=== PATIENT | male | born 1985 | race Caucasian/White ===

== ENCOUNTER → 2025-01-02 | Outpatient (CLI) | payer BC, SELFPAY ==
[2025-01-03 18:05] LABS: ALB/GLOB Ratio 1.6 RATIO (0.9-2.4); AST(SGOT) 23 U/L (<=37); Alanine Aminotransfer ALT/SGPT 36 U/L (<=46); Albumin, Serum 4.4 g/dL (3.5-5.0); Alkaline Phosphatase 87 U/L (40-129); Anion Gap 15 (5-15); BUN 15 mg/dL (4-19); BUN/Creat Ratio 18.9 RATIO (10-20); Calcium,Total 9.6 mg/dL (7.6-11.0); Carbon Dioxide 21.2 mmol/L (21.0-32.0); Chloride 100 mmol/L (98-108); Cholesterol 159 mg/dL (<=200); EST Glomerular Filtration Rate 116 (>60); Globulin 2.7 g/dL (2.2-4.2); Glucose 151 mg/dL (70-99); High Density Lipoprotein 28 mg/dL; Low Density Lipoprotein Calc. 73 mg/dL; Potassium 3.6 mmol/L (3.3-5.1); Protein, Total 7.1 g/dL (5.9-8.4); Sodium Level 136 mmol/L (133-145); Total Bilirubin 0.69 mg/dL (0.00-1.30); Triglycerides 292 mg/dL; Very Low Density Lipoprotein 58 mg/dL (5-40); cholesterol:hdl ratio screen 5.74
== END | disposition home or self-care (01) ==
PROVIDERS: PCP Nurse Practitioner; Referring Provider Nurse Practitioner; Visit Provider Nurse Practitioner
DX: E11.65 Type 2 diabetes mellitus with hyperglycemia (principal); E78.1 Pure hyperglyceridemia
CPT/HCPCS: 80053; 80061

== ENCOUNTER → 2025-01-24 | Outpatient (CLI) | payer BC, SELFPAY ==
[2025-01-24 22:15] LABS: Cholesterol 130 mg/dL (<=200); Low Density Lipoprotein Calc. 75 mg/dL; Triglycerides 100 mg/dL; Very Low Density Lipoprotein 20 mg/dL (5-40); cholesterol:hdl ratio screen 3.76
== END | disposition home or self-care (01) ==
PROVIDERS: Referring Provider Nurse Practitioner; Visit Provider Nurse Practitioner
DX: E78.1 Pure hyperglyceridemia (principal); E11.65 Type 2 diabetes mellitus with hyperglycemia
CPT/HCPCS: 80061; 84443

== ENCOUNTER → 2025-06-30 | Outpatient (CLI) | payer BC, SELFPAY ==
--- OUTSIDE RECORDS SUMMARY | 2025-06-30 22:40 | XMS RPT_ITS | CCD ---
Author Organization [facility] Care Team Providers Care Feeder/Folder Name Role Phone Unavailable Primary Care Provider Unavailabl e Pineda HOUSE ADMIN-C, Aliyah Primary Care Provider [phone] Pineda HOUSE ADMIN-C, Aliyah Attending Provider Pineda HOUSE ADMIN-C, Aliyah Referring Provider [phone] Aliyah Sung NP Referring Unavailable Aliyah Sung NP Attending Unavailable Pineda HOUSE ADMINAliyah Referring Unavailable Pineda HOUSE ADMIN, Aliyah Attending Unavailable Pineda HOUSE ADMINAliyah Primary Care Unavailable Allergies Allergy Classification Reported Allergen(s) Allergy Type Date of Onset Reaction(s) Facility (1 source) Penicillins Drug Allergy 05-16-2024 [facility] (4 sources) Penicillins Allergy to substance 01-03-2025 [facility] (1 source) Penicillins Drug allergy (disorder) 01-03-2025 [facility] Repository Medications Current Medications Medication Drug Class(es) Dates Sig (Normalized) Sig (Original) ARIPiprazole 5 mg oral tablet (1 source) Atypical Antipsychotic Start: 02-16-2024 take 1 tablet by mouth once ARIPiprazole (ABILIFY) 5 mg tablet Take 1 tablet by mouth every afternoon. 02/16/2024 Active busPIRone hydrochloride 10 mg oral tablet (5 sources) Start: 01-03-2025 take 2 tablets by mouth three times daily Buspirone 10 mg tablet Active 20 mg PO THREE TIMES A DAY January 03, 2025 12:00am Start: 02-16-2024 take 2 tablets by mo uth three times daily busPIRone (BUSPAR) 10 mg tablet Take 20 mg by mouth three times a day. 02/16/2024 Active escitalopram 20 mg oral tablet (9 sources) Serotonin Reuptake Inhibitor Start: 01-03-2025 take 1 tablet by mouth once daily Escitalopram Oxalate 20 mg tablet Active 20 mg PO daily January 03, 2025 12:00am Start: 01-03-2025 End: 03-06-2025 take 1 tablet by mouth once daily Escitalopram Oxalate 10 mg tablet Discontinued 10 mg PO daily January 03, 2025 12:00am March 06, 2025 8:02pm Start: 02-16-2024 escitalopram o xalate (LEXAPRO) 20 mg tablet take 1 AND 1/2 tablets by mouth every evening with food 02/16/2024 Active lidocaine hydrochloride 20 mg/ml mucous membrane topical solution (1 source) Antiarrhythmic, Amide Local Anesthetic Start: 05-16-2024 LIDOCAINE VISCOUS 2 % solution Indications: COVID-19 Take 5 mL by mouth every 4 hours as needed. 100 mL 05/16/2024 Active metFORMIN hydrochloride 500 mg oral tablet (4 sources) Biguanide Start: 2025 take 2 tablets by mouth twice daily Metformin 500 mg tablet Active 500 mg PO TWICE A DAY 60 1 2025 12:00am start once a day for 5-7 days then got ot 2 x a day predniSONE 10 mg oral tablet (1 source) Start: 05-16-2024 predniSONE (DELTASONE) 10 mg tablet Indications: COVID-19 Day #1 - 6 tablets PO then Day #2 - 5 tablets PO then Day #3 - 4 tablets PO then Day #4 - 3 tablets PO then Day #5 - 2 tablets PO then Day #6 - 1 tablet PO 21 tablet 05/16/2024 Active Problems Problem Classification Problem Date Documented Date Episodic/Chronic Diabetes mellitus with complications (5 sources) Hyperglycemia due to type 2 diabetes mellitus; Translations: [Type 2 diabetes mellitus with hyperglycemia] Onset: 01-05-2025 2025 Chronic Disorders of lipid metabolism (5 sources) Hyperlipidemia; Translations: [Hyperlipidemia, unspecified] Onset: 01-31-2025 01-03-2025 Chronic Mood disorders (4 sources) Depressive disorder; Translations: [Depression] 01-03-2025 Chronic Other upper respiratory infections (1 source) Sore throat symptom; Translations: [Acute pharyngitis, unspecified] 05-16-2024 Episodic Viral infection (1 source) Disease caused by 2019-nCoV; Translations: [COVID-19] 10-28-2024 Episodic Results Test Name Value Interpretation Reference Range Facility Calculated very low density lipoprotein (VLDL) cholesterol measurementOrdered By: Aliyah Sung on 01-24-2025 Calculated very low density lipoprotein (VLDL) cholesterol measurement 20 mg/dL 5-40 [facility] LDL calc ser/plasOrdered By: Aliyah Sung on 01-24-2025 Cholesterol in LDL [Mass/Vol] 75 mg/dL [facility] Comment on above: Gbeyslavlc=773-854 m g/dL & Higher Zzua=583 mg/dL or greater Laboratory - Hematology and Cell countsOrdered By: Aliyah Sung on 01-24-2025 HbA1c (Bld) [Mass fraction] 8.6 % High 4.2-6.3 [facility] Lipid Profileon 01-24-2025 CHOL:HDL 3.76 Normal [facility] Comment on above: Performed By: #### L 500.4100, L547.1867 #### [facility] [place] Laboratory [address] [place], [address] Cholesterol [Mass/Vol] 130 mg/dL Normal <=200 [facility] Comment on above: Result Comment: Chol esterol level, Desirable <200 mg/dL Borderline high cholesterol 200-239 mg/dL High cholesterol >=240 mg/dL Recommendations of the NCEP Adult Treatment Panel for the following risk-cutoff thresholds for the [place] population. Performed By: #### L 500.4100, L589.3920 #### [facility] Laboratory [address] [place], [place], [id number] Cholesterol in HDL [Mass/Vol] 35 mg/dL Low [facility] Comment on above: Result Comment: Nuzhat onal Cholesterol Education Program (NCEP) guidelines: <40 mg/dL: Low HDL-cholesterol (major risk factor for CHD) >= 60 mg/dL: High HDL-cholesterol (negative risk factor for CHD) HDL-cholesterol is affected by a number of factors, e.g. smoking, exercise, hormones, sex and age. Performed By: #### L 500.4100, L538.9520 #### [facility] [place] Laboratory [address] [place], [address] Cholesterol in LDL [Mass/Vol] 75 mg/dL Normal [facility] Comment on above: Result Comment: Bord mlilbc=552-059 mg/dL Higher Ajlq=178 mg/dL or greater Performed By: #### L 500.4100, L501.9520 #### [facility] [place] Laboratory [address] [place], [address] Cholesterol in VLDL [Mass/Vol] 20 mg/dL Normal 5-40 [facility] [place] Comment on above: Performed By: #### L 500.4100, L501.9520 #### [facility] [place] Laboratory [address] [place], [address] Triglyceride [Mass/Vol] 100 mg/dL Normal W [facility] Comment on above: Result Comment: The drugs N-Acetylcysteine and Metamizole may falsely depress this assay. Normal range: <150 mg/dL Borderline High: 150-199 mg/dL High: 200-499 mg/dL Very High: >500 mg/dL Performed By: #### L 500.4100, L501.9520 #### [facility] Laboratory [address] [place], [address] Screening total cholesterol/ high density lipoprotein (HDL) cholesterol ratioOrdered By: Aliyah Sung on 01-24-2025 Cholesterol.total/Shannon sterol in HDL [Mass ratio] 3.76 {ratio} [facility] Serum or plasma cholesterol in HDL measurement (mass/volume)Ordered By: Aliyah Sung on 01-24-2025 Cholesterol in HDL [Mass/Vol] 35 mg/dL Low >40 [facility] [place] Comment on above: National Cholesterol Education Program (NCEP) guidelines:<40 mg/dL: Low HDL-cholesterol (major risk factor for CHD)>= 60 mg/dL: High HDL-cholesterol (negative risk factor for CHD)HDL-cholesterol is affected by a number of factors, e.g. smoking, exercise, hormones, sex and age. Serum or plasma cholesterol measurement (mass/volume)Ordered By: Aliyah Sung on 01-24-2025 Cholesterol [Mass/Vol] 130 mg/dL <201 [facility] Comment on above: Cholesterol level, D esirable <200 mg/dLBorderline high cholesterol 200-239 mg/dLHigh cholesterol >=240 mg/dLRecommendations of the NCEP Adult Treatment Panel for the following risk-cutoff thresholds for the [place] population. TSH DL <= 0.005 mIU/L QnOrde red By: Aliyah Sung on 01-24-2025 TSH Qn 1.730 uIU/mL 0.300-4.200 [facility] [place] Thyroid Stim Hormone (TSH)on 01-24-2025 TSH 1.730 uIU/mL Normal 0.300-4.200 [facility] Comment on above: Performed By: #### L 500.4100, L501.9520 #### [facility] Laboratory [address] [place], [address] Triglycerides measurementOrd ered By: Aliyah Sung on 01-24-2025 Triglyceride [Mass/Vol] 100 mg/dL <199 [facility] Comment on above: The drugs N-Acetylcy steine and Metamizole may falsely depress this assay. Normal range: <150 mg/dLBorderline High: 150-199 mg/dLHigh: 200-499 mg/dLVery High: >500 mg/dL Comprehensive Metabolic Prof [facility] 01-03-2025 Albumin [Mass/Vol] 4.4 g/dL Normal 3.5-5.0 [facility] Comment on above: Performed By: #### L 500.4100, [id number] #### [facility] Laboratory [address] [place], [address] Albumin/Globulin [Mass ratio] 1.6 {ratio} Normal 0.9-2.4 [facility] Comment on above: Performed By: #### L 500.4100, [id number] #### [facility] Laboratory [address] [place], [address] ALK PHOS 87 U/L Normal 40-129 [facility] Comment on above: Performed By: #### L 500.4100, [id number] #### [facility] Laboratory [address] [place], [address] ALT [Catalytic activity/Vol] 36 U/L Normal <=46 [facility] Comment on above: Performed By: #### L 500.4100, [id number] #### [facility] Laboratory [address] [place], [address] AST [Catalytic activity/Vol] 23 U/L Normal <=37 [facility] Comment on above: Performed By: #### L 500.4100, [id number] #### [facility] Laboratory [address] [place], [address] Bilirubin [Mass/Vol] 0.69 mg/dL Normal 0.00-1.30 [facility] Comment on above: Performed By: #### L 500.4100, [id number] #### [facility] Laboratory [address] [place], [address] BUN/CRE 18.9 RATIO Normal 10-20 [facility] Comment on above: Performed By: #### L 500.4100, [id number] #### [facility] Laboratory [address] [place], [address] Calcium [Mass/Vol] 9.6 mg/dL Normal 7.6-11.0 [facility] Comment on above: Performed By: #### L 500.4100, [id number] #### [facility] Laboratory [address] [place], [address] Chloride [Moles/Vol] 100 mmol/L Normal 98-108 [facility] Comment on above: Performed By: #### L 500.4100, [id number] #### [facility] Laboratory [address] [place], [address] CO2 [Moles/Vol] 21.2 mmol/L Normal 21.0-32.0 [facility] Comment on above: Performed By: #### L 500.4100, [id number] #### [facility] Laboratory [address] [place], [address] Creatinine [Mass/Vol] 0.80 mg/dL Normal 0.70-1.20 [facility] Comment on above: Performed By: #### L 500.4100, [id number] #### [facility] Laboratory [address] [place], [address] GAP 15 Normal 5-15 [facility] Comment on above: Performed By: #### L 500.4100, [id number] #### [facility] Laboratory [address] [place], [address] GFR/1.73 sq M.predicted among non-blacks MDRD (S/P/Bld) [Vol rate/Area] 116 mL/min/{1.73_m2} Normal >60 [facility] Comment on above: Result Comment: mL/m in/1.73m2 CKD-EPI Creatinine Equation (2020) Performed By: #### L 500.4100, [id number] #### [facility] Laboratory [address] [place], [address] Globulin (S) [Mass/Vol] 2.7 g/dL Normal 2.2-4.2 [facility] Comment on above: Performed By: #### L 500.4100, [id number] #### [facility] Laboratory [address] [place], [address] Glucose [Mass/Vol] 151 mg/dL High 70-99 [facility] Comment on above: Performed By: #### L 500.4100, [id number] #### [facility] Laboratory [address] [place], [address] Potassium [Moles/Vol] 3.6 mmol/L Normal 3.3-5.1 [facility] Comment on above: Performed By: #### L 500.4100, [id number] #### [facility] Laboratory [address] [place], [address] Sodium [Moles/Vol] 136 mmol/L Normal 133-145 [facility] Comment on above: Performed By: #### L 500.4100, [id number] #### [facility] Laboratory [address] [place], [address] T PROT 7.1 g/dL Normal 5.9-8.4 [facility] Comment on above: Performed By: #### L 500.4100, [id number] #### [facility] Laboratory [address] [place], [address] Urea nitrogen [Mass/Vol] 15 mg/dL Normal 4-19 [facility] Comment on above: Performed By: #### L 500.4100, [id number] #### [facility] Laboratory [address] [place], [address] Lipid Profileon 01-03-2025 CHOL:HDL 5.74 Normal [facility] Comment on above: Performed By: #### L 500.4100, [id number] #### [facility] Laboratory [address] [place], [address] Cholesterol [Mass/Vol] 159 mg/dL Normal <=200 [facility] Comment on above: Result Comment: Chol esterol level, Desirable <200 mg/dL Borderline high cholesterol 200-239 mg/dL High cholesterol >=240 mg/dL Recommendations of the NCEP Adult Treatment Panel for the following risk-cutoff thresholds for the [place] population. Performed By: #### L 500.4100, [id number] #### [facility] Laboratory [address] [place], [address] Cholesterol in HDL [Mass/Vol] 28 mg/dL Low [facility] Comment on above: Result Comment: Nuzhat onal Cholesterol Education Program (NCEP) guidelines: <40 mg/dL: Low HDL-cholesterol (major risk factor for CHD) >= 60 mg/dL: High HDL-cholesterol (negative risk factor for CHD) HDL-cholesterol is affected by a number of factors, e.g. smoking, exercise, hormones, sex and age. Performed By: #### L 500.4100, [id number] #### [facility] Laboratory [address] [place], [address] Cholesterol in LDL [Mass/Vol] 73 mg/dL Normal [facility] Comment on above: Result Comment: Bord lyhkkh=331-222 mg/dL Higher Cbxm=929 mg/dL or greater Performed By: #### L 500.4100, [id number] #### [facility] Laboratory [address] [place], [address] Cholesterol in VLDL [Mass/Vol] 58 mg/dL High 5-40 [facility] Comment on above: Performed By: #### L 500.4100, [id number] #### [facility] Laboratory [address] [place], [address] Triglyceride [Mass/Vol] 292 mg/dL High W [facility] Comment on above: Result Comment: The drugs N-Acetylcysteine and Metamizole may falsely depress this assay. Normal range: <150 mg/dL Borderline High: 150-199 mg/dL High: 200-499 mg/dL Very High: >500 mg/dL Performed By: #### L 500.4100, [id number] #### [facility] Laboratory [address] [place], [address] Anion gap in Serum or Plasma Ordered By: Aliyah Sung on 2025 Anion gap [Moles/Vol] 15 mmol/L - [facility] BUN/creatinine ratioOrdered By: Aliyah Sung on 2025 Urea nitrogen/Creatinine [Mass ratio] 18.9 mg/mg 10- [facility] Bilirubin, totalOrdered By: Aliyah Sung on 2025 Bilirubin [Mass/Vol] 0.69 mg/dL 0.00-1.30 [facility] Calculated very low density lipoprotein (VLDL) cholesterol measurementOrdered By: Aliyah Sung on 2025 Calculated very low density lipoprotein (VLDL) cholesterol measurement 58 mg/dL High 5-40 [facility] Carbon dioxide, total [Moles /volume] in Central venous bloodOrdered By: Aliyah Sung on 2025 CO2 [Moles/Vol] 21.2 mmol/L 21.0-32.0 [facility] Chloride assayOrdered By: Do ra Sung on 2025 Chloride [Moles/Vol] 100 mmol/L 98-108 [facility] Glomerular filtration rate ( GFR) estimation/1.73 sq m using serum, plasma, or whole bOrdered By: Aliyah Sung on 2025 GFR/1.73 sq M.predicted among non-blacks MDRD (S/P/Bld) [Vol rate/Area] 116 mL/min/{1.73_m2} >60 [facility] Comment on above: mL/min/1.73m2 CKD-EP I Creatinine Equation (2020) LDL calc ser/plasOrdered By: Aliyah Sung on 2025 Cholesterol in LDL [Mass/Vol] 73 mg/dL [facility] Comment on above: Pcuemspiek=331-749 m g/dL & Higher Cipy=390 mg/dL or greater Laboratory - Chemistry and C hemistry - challengeOrdered By: Aliyah Sung on 2025 AST [Catalytic activity/Vol] 23 U/L <38 [facility] Laboratory - Hematology and Cell countsOrdered By: Aliyah Sung on 2025 HbA1c (Bld) [Mass fraction] 11.4 % High 4.2-6.3 [facility] Potassium measurement (mass/ volume)Ordered By: Aliyah Sung on 2025 Potassium (Unsp spec) [Mass/Vol] 3.6 mmol/L 3.3-5.1 [facility] Screening total cholesterol/ high density lipoprotein (HDL) cholesterol ratioOrdered By: Aliyah Sung on 2025 Cholesterol.total/Shannon sterol in HDL [Mass ratio] 5.74 {ratio} [facility] Serum creatinine measurement (mass/volume)Ordered By: Aliyah Sung on 2025 Creatinine [Mass/Vol] 0.80 mg/dL 0.70-1.20 [facility] Serum globulin measurementOr dered By: Aliyah Sung on 2025 Globulin (S) [Mass/Vol] 2.7 g/dL 2.2-4.2 [facility] Serum glucose measurement (m ass/volume)Ordered By: Aliyah Sung on 2025 Glucose [Mass/Vol] 151 mg/dL High 70-99 [facility] Serum or plasma alanine fowler otransferase (ALT) measurementOrdered By: Aliyah Sung on 2025 ALT [Catalytic activity/Vol] 36 U/L <47 [facility] Serum or plasma albumin cameron urement (mass/volume)Ordered By: Aliyah Sung on 2025 Albumin [Mass/Vol] 4.4 g/dL 3.5-5.0 [facility] Serum or plasma albumin/glob ulin mass ratioOrdered By: Aliyah Sung on 2025 Albumin/Globulin [Mass ratio] 1.6 {ratio} 0.9-2.4 [facility] Serum or plasma alkaline kwasi sphatase measurementOrdered By: Aliyah Sung on 2025 ALP [Catalytic activity/Vol] 87 U/L 40-129 [facility] Serum or plasma calcium cameron urement (mass/volume)Ordered By: Aliyah Sung on 2025 Calcium [Mass/Vol] 9.6 mg/dL 7.6-11.0 [facility] Serum or plasma cholesterol in HDL measurement (mass/volume)Ordered By: Aliyah Sung on 2025 Cholesterol in HDL [Mass/Vol] 28 mg/dL Low >40 [facility] Comment on above: National Cholesterol Education Program (NCEP) guidelines:<40 mg/dL: Low HDL-cholesterol (major risk factor for CHD)>= 60 mg/dL: High HDL-cholesterol (negative risk factor for CHD)HDL-cholesterol is affected by a number of factors, e.g. smoking, exercise, hormones, sex and age. Serum or plasma cholesterol measurement (mass/volume)Ordered By: Aliyah Sung on 2025 Cholesterol [Mass/Vol] 159 mg/dL <201 [facility] Comment on above: Cholesterol level, D esirable <200 mg/dLBorderline high cholesterol 200-239 mg/dLHigh cholesterol >=240 mg/dLRecommendations of the NCEP Adult Treatment Panel for the following risk-cutoff thresholds for the [place] population. Serum or plasma urea nitroge n measurement (mass/volume)Ordered By: Aliyah Sung on 2025 Urea nitrogen [Mass/Vol] 15 mg/dL 4-19 [facility] Sodium levelOrdered By: Aliyah Sung on 2025 Sodium [Moles/Vol] 136 mmol/L 133-145 [facility] Total proteinOrdered By: Adonis Sung on 2025 Protein [Mass/Vol] 7.1 g/dL 5.9-8.4 [facility] Triglycerides measurementOrd ered By: Aliyah Sung on 2025 Triglyceride [Mass/Vol] 292 mg/dL High <199 [address] [facility] Comment on above: The drugs N-Acetylcy steine and Metamizole may falsely depress this assay. Normal range: <150 mg/dLBorderline High: 150-199 mg/dLHigh: 200-499 mg/dLVery High: >500 mg/dL CNOVon 05-16-2024 CNOV Office Visit (VANIA) -------- LORI BRO ([id number]) 1985 M Date Time Provider Department 05/16/24 10:30 AM LUIS FERNANDO BRAGA During your visit today, we recorded the following information about you: Temperature Pulse Respiration Blood pressure 99.5 degrees 64/minute 16/minute 121/83 Weight Height 109 kg 1.753 m Luis Fernando Braga, SEGUN 05/16/2024 11:42 AM Signed Subjective Lori Bro is a 39 year old male with no significant past medical history who presents to [facility] care today for evaluation of fever, sore throat, cough, and nasal congestion. Patient states that he tested positive for COVID-19 about 4 days ago. He states that it feels like his throat has been getting worse. He denies any known exposure to strep pharyngitis. Review of Systems Constitutional: Positive for chills, diaphoresis, fatigue and fever. HENT: Positive for congestion and sore throat. Negative for ear pain. Eyes: Negative for discharge and redness. Respiratory: Positive for cough. Negative for shortness of breath. Skin: Negative for rash and wound. Neurological: Positive for headaches. Negative for weakness. All other systems reviewed and are negative. Objective There were no vitals taken for this visit. Physical Exam Vitals reviewed. Constitutional: General: He is not in acute distress. Appearance: Normal appearance. He is normal weight. He is not ill-appearing or toxic-appearing. Comments: The patient appears to be non-toxic, in no acute distress, and resting comfortably on the table. HENT: Head: Normocephalic and atraumatic. Mouth/Throat: Pharynx: Uvula midline. Posterior oropharyngeal erythema present. Eyes: Extraocular Movements: Extraocular movements intact. Cardiovascular: Rate and Rhythm: Normal rate and regular rhythm. Heart sounds: Normal heart sounds. No murmur heard. No friction rub. No gallop. Pulmonary: Effort: Pulmonary effort is normal. No respiratory distress. Breath sounds: Normal breath sounds. No wheezing. Musculoskeletal: General: Normal range of motion. Cervical back: Normal range of motion. Skin: General: Skin is warm and dry. Findings: No erythema or rash. Neurological: General: No focal deficit present. Mental Status: He is alert and oriented to person, place, and time. Mental status is at baseline. Psychiatric: Mood and Affect: Mood normal. Behavior: Behavior normal. Thought Content: Thought content normal. Assessment and Plan Examination of the oropharynx reveals posterior oropharyngeal erythema with no edema or exudate. Uvula is midline. No trismus. Rapid strep negative. Suspect patient's symptoms are due to his COVID-19 infection. Patient counseled regarding suspected diagnosis and given prescriptions for viscous lidocaine and prednisone. Advised to follow-up with primary care as needed for any new or worsening symptoms. ASSESSMENT/PLAN: 1. COVID-19 - ICD9: 079.89, ICD10: U07.1 (primary diagnosis) - LIDOCAINE HCL 2 % MUCOSAL SOLUTION - PREDNISONE 10 MG TABLET 2. Sore throat - ICD9: 462, ICD10: J02.9 - STREP A MOLECULAR (POC) Medical Decision Making: Problems: Low: Acute, uncomplicated illness or injury Risk: Minimal: Minimal risk from testing/treatment Moderate: Drug management Medical Decision Making Level: 3 - Low I spent a total of 20 minutes on the date of the service which included preparing to see the patient, [id number] patient care, completing clinical documentation, performing a medically appropriate examination, counseling and educating the patient/family/car egiver, and ordering medications, tests, or procedures. SEGUN Butler Ariana P, PA-C 05/16/2024 11:39 AM Signed [facility] PATIENT INFO PHARYNGITIS OVERVIEW A sore throat (pharyngitis) is a common problem, and usually is caused by a viral or bacterial infection. Sore throat usually resolves on its own without complications in adults, although it is important to know when to seek medical attention. Viruses can cause a sore throat and other upper respiratory infections, such as the common cold. Sore throat caused by a virus is not treated with antibiotics, but instead may be treated with rest, pain medication, and other therapies aimed at relieving symptoms. Strep throat is a particular kind of pharyngitis that is caused by a bacterium known as group A streptococcus (GAS). Strep throat is treated with a course of antibiotics. SORE THROAT SYMPTOMS Viral pharyngitis -- Most people with a sore throat have a virus. The most common viruses are those that cause upper respiratory infections, such as the common cold. Symptoms of a viral infection can include: A runny or congested nose Irritation or redness of the eyes Cough, hoarseness, or soreness in the roof of the mouth Some viruses cause a fever and can make you feel (more content not included)... Normal [facility] STREP A MOLECULAR (POC)on Procedural Control Valid [facility] Strep A (POCT) Negative Negative [facility] SARS CoV 2 RNA(COVID 19), QU ALITATIVE NAATon 04-03-2020 SARS CoV 2 RNA NOT DETECTED Normal NOT DETECTED [facility] Comment on above: Result Comment: A Not Detected (negative) test result for this test means that SARS-CoV-2 RNA was not present in the specimen above the limit of detection. A negative result does not rule out the possibility of COVID-19 and should not be used as the sole basis for treatment or patient management decisions. If COVID-19 is still suspected, based on exposure history together with other clinical findings, re-testing should be considered in consultation with public health authorities. Laboratory test results should always be considered in the context of clinical observations and epidemiological data in making a final diagnosis and patient management decisions. REFERENCE RANGE: NOT DETECTED This patient specimen was tested using an FDA EUA pooling method. Negative results from pooled testing should not be treated as definitive. If the patient's clinical signs and symptoms are inconsistent with a negative result or results are necessary for patient management, then the patient should be considered for individual testing. Specimens with low viral loads may not be detected in sample pools due to the decreased sensitivity of pooled testing. Please review the Fact Sheets and FDA authorized labeling available for health care providers and patients using the following websites: https://[email or web address].com/home/Covid-19/HCP/QuestLDTP/ fact-sheet https://www.[employer].MobileSpan/home/Covid-19/Patients/QuestL DTP/ fact-sheet.html This test has been authorized by the FDA under an Emergency Use Authorization (EUA) for use by authorized laboratories. Due to the current public health emergency, [facility] is receiving a high volume of samples from a wide variety of swabs and media for COVID-19 testing. In order to serve patients during this public health crisis, samples from appropriate clinical sources are being tested. Negative test results derived from specimens received in non-commercially manufactured viral collection and transport media, or in media and sample collection kits not yet authorized by FDA for COVID-19 testing should be cautiously evaluated and the patient potentially subjected to extra precautions such as additional clinical monitoring, including collection of an additional specimen. Methodology: Nucleic Acid Amplification Test (NAAT) includes PCR or TMA Additional information about COVID-19 can be found at the [facility] website: www.[employer].MobileSpan/Covid19. Performed By: #### [id number] #### [facility] [employer] [address] [place] [address], [place] [address] Locket Maker: Sigrid Ojeda MD Vital Signs Date Time Vital Sign Value Performing Clinician John hernández 03-06-2025 19:55-0400 Body height 170.81 cm Aliyah Sung HOUSE ADMIN-C Work Phone: [facility] [place] 03-06-2025 19:55-0400 Body mass index (BMI) [Ratio] 32.1 kg/m2 Aliyah Sung HOUSE ADMIN-C Work Phone: [facility] [place] 03-06-2025 19:55-0400 Body weight 93.89 kg Aliyah Sung HOUSE ADMIN-C Work Phone: [facility] [place] 01-24-2025 19:57-0400 Body height 170.81 cm Aliyah Sung HOUSE ADMIN-C Work Phone: [facility] [place] 01-24-2025 19:57-0400 Body mass index (BMI) [Ratio] 29.5 kg/m2 Aliyah Sung HOUSE ADMIN-C Work Phone: [facility] [place] 01-24-2025 19:57-0400 Body temperature 97.9 [degF] Aliyah Sung HOUSE ADMIN-C Work Phone: [facility] [place] 01-24-2025 19:57-0400 Body weight 86.18 kg Aliyah Sung HOUSE ADMIN-C Work Phone: [facility] [place] 01-24-2025 19:57-0400 Diastolic blood pressure 60 mm[Hg] Aliyah Sung HOUSE ADMIN-C Work Phone: [facility] [place] 01-24-2025 19:57-0400 Heart rate 84 /min Aliyah Sung HOUSE ADMIN-C Work Phone: [facility] [place] 01-24-2025 19:57-0400 Respiratory rate 18 /min Aliyah Sung HOUSE ADMIN-C Work Phone: [facility] [place] 01-24-2025 19:57-0400 SaO2% (BldA) [Mass fraction] 98 % Aliyah Sung HOUSE ADMIN-C Work Phone: [facility] [place] 01-24-2025 19:57-0400 Systolic blood pressure 100 mm[Hg] Aliyah Sung HOUSE ADMIN-C Work Phone: [facility] 05-16-2024 11:24-0400 Body height 175.3 cm Luis Fernando Wormald PA-C Work Phone: [facility] 05-16-2024 11:24-0400 Body mass index (BMI) [Ratio] 35.49 kg/m2 Luis Fernando Wormald PA-C Work Phone: [facility] 05-16-2024 11:24-0400 Body temperature 99.5 [degF] Luis Fernando Wormald PA-C Work Phone: [facility] 05-16-2024 11:24-0400 Body weight 109 kg Luis Fernando Wormald PA-C Work Phone: [facility] 05-16-2024 11:24-0400 Diastolic blood pressure 83 mm[Hg] Luis Fernando Wormald PA-C Work Phone: [facility] 05-16-2024 11:24-0400 Heart rate 64 /min Luis Fernando Wormald PA-C Work Phone: [facility] 05-16-2024 11:24-0400 Respiratory rate 16 /min Luis Fernando Wormald PA-C Work Phone: [facility] 05-16-2024 11:24-0400 SaO2% (BldA) [Mass fraction] 99 % Luis Fernando Wormald PA-C Work Phone: [facility] 05-16-2024 11:24-0400 Systolic blood pressure 121 mm[Hg] Luis Fernando Wormald PA-C Work Phone: [facility] Encounters Encounter Date Encounter Type Care Provider Facility Start: 03-06-2025 End: 03-06-2025 ambulatory Aliyah Sung HOUSE ADMIN-C Work Phone: [facility] Start: 01-24-2025 End: 01-24-2025 ambulatory Aliyah Sung HOUSE ADMIN-C Work Phone: -Laboratory Specimen Start: 01-24-2025 End: 01-24-2025 Patient encounter procedure Aliyah Sung HOUSE ADMIN-C -Laboratory Specimen Work Phone: Start: 01-24-2025 End: 01-24-2025 ambulatory Aliyah Sung HOUSE ADMIN-C Work Phone: [facility] Start: 01-24-2025 End: 01-24-2025 ambulatory Aliyah Sung HOUSE ADMIN Facility:[facility] [place] Start: 2025 End: 2025 ambulatory Aliyah Sung HOUSE ADMIN-C Work Phone: [facility] [place] Work Phone: Start: 2025 End: 2025 Patient encounter procedure Aliyah Sung HOUSE ADMIN-C -Laboratory Specimen Work Phone: Start: 2025 Non-patient / Non-visit Aliyah santo HOUSE ADMIN-C -[facility] Work Phone: Start: 2025 End: 2025 ambulatory Aliyah Sung HOUSE ADMIN Facility:[facility] [place] Start: 05-16-2024 End: 05-16-2024 ambulatory Facility:[facility] Start: 05-16-2024 End: 05-16-2024 Patient encounter procedure Luis Fernando Braga PA-C Work Phone: [facility] Comment on above: COVID-19 (Primary Dx ); Sore throat Procedures Date Procedure Procedure Detail Performing Clinician Start: 05-16-2024 STREP A MOLECULAR (POC) Luis Fernando Braga PA-C Work Phone: Plan of Treatment Date Care Activity Detail Author Start: 03-20-2024 Covid-19 Vaccine ( season) Covid-19 Vaccine () [facility] Start: 03-20-2024 Influenza vaccination Influenza Vacc ine (#1) [facility] Start: 2022 Lipid panel Lipid Screening [facility] Start: 2006 Hepatitis B Vaccine (1 of 3 - 19+ 3-dose series) Hepatitis B Vaccine (1 of 3 - 19+ 3-dose series) [facility] Start: 2006 Urine microalbumin profile DTaP,Tdap,Td Vaccine (1 - Tdap) [facility] Start: 2005 Anxiety Screening Anxiety Screening [facility] Start: 2005 Depression Screening Depression Scre ening [facility] Start: 2005 Hepatitis C screening Hepatitis C Sc reening [facility] Start: 2005 HIV screening HIV Screening [facility] Hemoglobin A1c/Hemoglobin.total in Blood [facility] Payers Date Payer Category Payer Self-pay 2025 Unknown [id number] Unknown [id number] Unknown [id number] Social History Date Type Detail Facility Start: 05-16-2024 Tobacco smoking stat [facility] Never smoked tobacco [facility] Start: 05-16-2024 Tobacco use and exposure Smokeless tobacco non-user [facility] Start: 05-16-2024 History of Social function [facility] Start: 05-16-2024 Tobacco use panel [facility] Start: 1987 Sex assigned at Not on file [facility] Work Phone: Start: 1985 Sex Assigned At Male W [facility] Medical Equipment Procedure Code Equipment Code Equipment Origin al Text Equipment Identifier Dates Blood Sugar Diagnostic ([employer] Test Strips) strip Start: 01-24-2025 Blood Sugar Diagnostic ([employer] Test Strips) strip Start: 01-24-2025 Blood Sugar Diagnostic ([employer] Test Strips) strip Start: 01-24-2025 Evaluation note 01-24-2025 Note Date & Type Note Facility 01-24-2025 Evaluation note Diagnosis Onset Date Resolution Hyperglycemia due to type 2 diabetes mellitus acute January 7:11pm [facility] [place] Work Phone: Evaluation note 01-24-2025 Note Date & Type Note Facility 01-24-2025 Evaluation note Diagnosis Onset Date Resolution Hyperglycemia due to type 2 diabetes mellitus acute January, 2024 7:11pm Hyperlipemia acute January 24 7:11pm [facility] [place] Work Phone: Evaluation note 01-24-2025 Note Date & Type Note Facility 01-24-2025 Evaluation note Diagnosis Onset Date Resolution Hyperglycemia due to type 2 diabetes mellitus acute January 7:11pm Hyperlipemia acute January 24 7:11pm Depression acute March 06, 7:11pm Hyperglycemia due to type 2 diabetes mellitus acute March 06, 2025 7:11pm [facility] [place] Work Phone: Instructions 05-16-2024 Patient Instructions Note Date & Type Note Facility 05-16-2024 Instructions Luis Fernando Braga PA-C - 05/16/2024 11:39 AM EDT [facility] PATIENT INFO PHARYNGITIS OVERVIEW A sore throat (pharyngitis) is a common problem, and usually is caused by a viral or bacterial infection. Sore throat usually resolves on its own without complications in adults, although it is important to know when to seek medical attention. Viruses can cause a sore throat and other upper respiratory infections, such as the common cold. Sore throat caused by a virus is not treated with antibiotics, but instead may be treated with rest, pain medication, and other therapies aimed at relieving symptoms. Strep throat is a particular kind of pharyngitis that is caused by a bacterium known as group A streptococcus (GAS). Strep throat is treated with a course of antibiotics. SORE THROAT SYMPTOMS Viral pharyngitis -- Most people with a sore throat have a virus. The most common viruses are those that cause upper respiratory infections, such as the common cold. Symptoms of a viral infection can include: A runny or congested nose Irritation or redness of the eyes Cough, hoarseness, or soreness in the roof of the mouth Some viruses cause a fever and can make you feel quite ill. Strep throat -- Approximately 10 percent of adults with a sore throat have strep throat. Signs and symptoms of strep throat include the following: Pain in the throat Fever (temperature greater than 100.4 F or 38 C) Enlarged lymph glands in the neck White patches of pus on the side or back of the throat No cough, runny nose, or irritation/redness of the eyes Other infections -- Many other less common but more serious infections can cause a sore throat, including mononucleosis (mono), influenza (the flu), N. gonococcus (gonorrhea), human immunodeficiency virus (HIV), and others. When to seek urgent help -- See your doctor or nurse immediately if you have a sore throat along with any of the following: Difficulty breathing Skin rash Drooling because you cannot swallow Swelling of the neck or tongue Stiff neck or difficulty opening the mouth SORE THROAT DIAGNOSIS Most people with a sore throat get better without treatment. There is no specific treatment for a sore throat caused by usual cold viruses. Is it strep or not? -- A combination of symptoms (fever, enlarged glands in the neck, white patches on your tonsils, and no cough) can help in determining if you have strep. If you have two or more symptoms, a rapid test or throat culture may be done. People with fewer than two symptoms usually do not need testing or treatment for strep throat. Rapid test -- The rapid test determines if there are streptococcus bacteria on a throat swab. The test can be done in a clinician's office and the results are available within a few minutes. The test is accurate in most cases, although a small percentage of tests are falsely negative (the bacteria are present but the test is negative). Throat culture -- A throat culture involves swabbing the throat, sending the swab to a laboratory, and waiting 24 to 48 hours for the results. Throat cultures are slightly more accurate than the rapid test. TREATMENT OF SORE THROAT Sore throat treatment -- Antibiotics do not help throat pain caused by a virus and are not recommended. Sore throat caused by viral infections usually lasts four to five days. During this time, treatments to reduce pain may be helpful. Several therapies can help to relieve throat pain. Pain medication -- You can treat your throat pain with a mild pain reliever such as acetaminophen (Tylenol ) or a non-steroidal anti-inflammatory agent such as ibuprofen or naproxen (Motrin or Aleve ). Oral rinses -- Salt-water gargles are an old stand-by for throat pain. It is not clear that salt water works to relieve pain, but it is unlikely to be harmful. Most recipes suggest 1/4 to 1/2 teaspoon of salt per one cup (8 ounces) of warm water. Sprays -- Sprays containing topical anesthetics (eg, benzocaine, phenol) are available to treat sore throat. However, such sprays are no more effective than sucking on hard candy. Lozenges -- A variety of lozenges (cough drops) are available to treat throat pain or relieve dryness. However, it is not clear that lozenges work any better than other forms of hard candy, which are generally less expensive. Other treatments -- Other treatments that may help with throat pain include sipping warm beverages (eg, honey or lemon tea, chicken soup), cold beverages, or eating cold or frozen desserts (eg, ice cream, popsicles). Alternative therapies -- [employer] food stores, vitamin outlets, and Internet Web sites offer alternative treatments for relief of sore throat pain. We do not recommend these type of treatments due to the risks of contamination with pesticides/herbicides, inaccurate labeling and dosing information, and a lack of studies showing that these treatments are safe and effective. Strep throat -- Although strep throat typically resolves on its own within two to five days, treatment with antibiotics is recommended for adults whose rapid test or throat culture is positive for strep throat. Penicillin, or an antibiotic related to penicillin, is the treatment of choice for strep throat. It is usually given in pill or liquid form two to four times per day for 10 days. A one time injection of penicillin is also available. People who are allergic to penicillin are given an alternate antibiotic. It is important to finish the entire course of treatment to completely eliminate the infection. If symptoms do not begin to improve or worsen by three days of antibiotic treatment, you should see your doctor or nurse again. Return to work/school -- If you have been diagnosed with strep throat, stay home from work or school until you have completed 24 hours of antibiotics. Within 24 hours of beginning antibiotic treatment, you will feel better and will be less contagious [1]. If you have a sore throat (not diagnosed as strep), you may participate in your usual activities as soon as you feel well. SORE THROAT PREVENTION Hand washing is an essential and highly effective way to prevent the spread of infection. Wet your hands with water and plain soap, and rub them together for 15 to 30 seconds. Pay special attention to the fingernails, between the fingers, and the wrists. Rinse your hands thoroughly, and dry them with a clean towel. Alcohol-based hand rubs are a good alternative for disinfecting hands if a sink is not available. Hand rubs should be spread over the entire surface of hands, fingers, and wrists until dry, and may be used several times. These rubs can be used repeatedly without skin irritation or loss of effectiveness. Hand rubs are available as a liquid or wipe in small, portable sizes that are easy to carry in a pocket or handbag. When a sink is available, visibly soiled hands should be washed with soap and water. Wash your hands after coughing, blowing the nose, or sneezing. While it is not always possible to avoid being near a person who is sick, avoiding touching your eyes, nose, or mouth to prevent the spread of infection. In addition, tissues should be used to cover the mouth when sneezing or coughing. These used tissues should be disposed of promptly. Sneezing/coughing into your sleeve (at the inner elbow) is another way to contain sprays of saliva and secretions and will not contaminate your hand documented in this encounter [facility] Progress note 05-16-2024 Note Date & Type Note Facility 05-16-2024 Note HNO ID: [id number] Author: LUIS FERNANDO BRAGA PA-C Service: ? Author Type: Physician Wood Type Finisher Type: Progress Notes Filed: 05/16/2024 11:42 Note Text: Subjective Lori Bro is a 39 year old male with no significant past medical history who presents to [facility] today for evaluation of fever, sore throat, cough, and nasal congestion. Patient states that he tested positive for COVID-19 about 4 days ago. He states that it feels like his throat has been getting worse. He denies any known exposure to strep pharyngitis. Review of Systems Constitutional: Positive for chills, diaphoresis, fatigue and fever. HENT: Positive for congestion and sore throat. Negative for ear pain. Eyes: Negative for discharge and redness. Respiratory: Positive for cough. Negative for shortness of breath. Skin: Negative for rash and wound. Neurological: Positive for headaches. Negative for weakness. All other systems reviewed and are negative. Objective There were no vitals taken for this visit. Physical Exam Vitals reviewed. Constitutional: General: He is not in acute distress. Appearance: Normal appearance. He is normal weight. He is not ill-appearing or toxic-appearing. Comments: The patient appears to be non-toxic, in no acute distress, and resting comfortably on the table. HENT: Head: Normocephalic and atraumatic. Mouth/Throat: Pharynx: Uvula midline. Posterior oropharyngeal erythema present. Eyes: Extraocular Movements: Extraocular movements intact. Cardiovascular: Rate and Rhythm: Normal rate and regular rhythm. Heart sounds: Normal heart sounds. No murmur heard. No friction rub. No gallop. Pulmonary: Effort: Pulmonary effort is normal. No respiratory distress. Breath sounds: Normal breath sounds. No wheezing. Musculoskeletal: General: Normal range of motion. Cervical back: Normal range of motion. Skin: General: Skin is warm and dry. Findings: No erythema or rash. Neurological: General: No focal deficit present. Mental Status: He is alert and oriented to person, place, and time. Mental status is at baseline. Psychiatric: Mood and Affect: Mood normal. Behavior: Behavior normal. Thought Content: Thought content normal. Assessment and Plan Examination of the oropharynx reveals posterior oropharyngeal erythema with no edema or exudate. Uvula is midline. No trismus. Rapid strep negative. Suspect patient's symptoms are due to his COVID-19 infection. Patient counseled regarding suspected diagnosis and given prescriptions for viscous lidocaine and prednisone. Advised to follow-up with primary care as needed for any new or worsening symptoms. ASSESSMENT/PLAN: 1. COVID-19 - ICD9: 079.89, ICD10: U07.1 (primary diagnosis) - LIDOCAINE HCL 2 % MUCOSAL SOLUTION - PREDNISONE 10 MG TABLET 2. Sore throat - ICD9: 462, ICD10: J02.9 - STREP A MOLECULAR (POC) Medical Decision Making: Problems: Low: Acute, uncomplicated illness or injury Risk: Minimal: Minimal risk from testing/treatment Moderate: Drug management Medical Decision Making Level: 3 - Low I spent a total of 20 minutes on the date of the service which included preparing to see the patient, [id number] patient care, completing clinical documentation, performing a medically appropriate examination, counseling and educating the patient/family/caregiver, and ordering medications, tests, or procedures. Luis Fernando Braga PA-C [facility] History of Present illness Narrative 05-16-2024 Luis Fernando Braga PA-C - 05/16/2024 11:15 AM EDT Note Date & Type Note Facility 05-16-2024 History of Presen t illness Narrative Subjective Lori Bro is a 39 year old male with no significant past medical history who presents to [facility] care today for evaluation of fever, sore throat, cough, and nasal congestion. Patient states that he tested positive for COVID-19 about 4 days ago. He states that it feels like his throat has been getting worse. He denies any known exposure to strep pharyngitis. Review of Systems Constitutional: Positive for chills, diaphoresis, fatigue and fever. HENT: Positive for congestion and sore throat. Negative for ear pain. Eyes: Negative for discharge and redness. Respiratory: Positive for cough. Negative for shortness of breath. Skin: Negative for rash and wound. Neurological: Positive for headaches. Negative for weakness. All other systems reviewed and are negative. Objective There were no vitals taken for this visit. Physical Exam Vitals reviewed. Constitutional: General: He is not in acute distress. Appearance: Normal appearance. He is normal weight. He is not ill-appearing or toxic-appearing. Comments: The patient appears to be non-toxic, in no acute distress, and resting comfortably on the table. HENT: Head: Normocephalic and atraumatic. Mouth/Throat: Pharynx: Uvula midline. Posterior oropharyngeal erythema present. Eyes: Extraocular Movements: Extraocular movements intact. Cardiovascular: Rate and Rhythm: Normal rate and regular rhythm. Heart sounds: Normal heart sounds. No murmur heard. No friction rub. No gallop. Pulmonary: Effort: Pulmonary effort is normal. No respiratory distress. Breath sounds: Normal breath sounds. No wheezing. Musculoskeletal: General: Normal range of motion. Cervical back: Normal range of motion. Skin: General: Skin is warm and dry. Findings: No erythema or rash. Neurological: General: No focal deficit present. Mental Status: He is alert and oriented to person, place, and time. Mental status is at baseline. Psychiatric: Mood and Affect: Mood normal. Behavior: Behavior normal. Thought Content: Thought content normal. Assessment and Plan Examination of the oropharynx reveals posterior oropharyngeal erythema with no edema or exudate. Uvula is midline. No trismus. Rapid strep negative. Suspect patient's symptoms are due to his COVID-19 infection. Patient counseled regarding suspected diagnosis and given prescriptions for viscous lidocaine and prednisone. Advised to follow-up with primary care as needed for any new or worsening symptoms. ASSESSMENT/PLAN: 1. COVID-19 - ICD9: 079.89, ICD10: U07.1 (primary diagnosis) - LIDOCAINE HCL 2 % MUCOSAL SOLUTION - PREDNISONE 10 MG TABLET 2. Sore throat - ICD9: 462, ICD10: J02.9 - STREP A MOLECULAR (POC) Medical Decision Making: Problems: Low: Acute, uncomplicated illness or injury Risk: Minimal: Minimal risk from testing/treatment Moderate: Drug management Medical Decision Making Level: 3 - Low I spent a total of 20 minutes on the date of the service which included preparing to see the patient, [id number] patient care, completing clinical documentation, performing a medically appropriate examination, counseling and educating the patient/family/caregiver, and ordering medications, tests, or procedures. Luis Fernando Braga PA-C documented in this encounter [facility] Evaluation note Note Date & Type Note Facility Evaluation note Diagnosis COVID-19- Primary Sore throat Acute pharyngitis documented in this encounter [facility] Evaluation note Note Date & Type Note Facility Evaluation note No assessment information availa ble [facility] [place] Work Phone: Reason for referral (narrative) Note Date & Type Note Facility Reason for referral (narrative) No reason for referral information available [facility] [place] Work Phone: Summary Purpose Family History No Family History Records FoundNo Family History Records FoundNo Family History Records Found Advance Directives No Advanced Directives Records FoundNo Advanced Directives Records FoundNo Advanced Directives Records Found Chief Complaint and Reason for Visit Chief Complaint Admit Date Diabetes Mellitus Type 2 A1c & f/up meds January 24, 2025 7:11pm Reason for Visit Admit Date Hyperglycemia due to type 2 diabetes kerri litus January 24, 2025 7:11pm Reason for Visit Admit Date Hyperglycemia due to type 2 diabetes kerri litus January 24, 2025 7:11pm Hyperlipemia January 24, 2025 7:11p m Chief Complaint Admit Date Diabetes Mellitus Type 2 A1c & f/up meds January 24, 2025 7:11pm F/up W/meds March 06, 2025 7: 11pm Reason for Visit Admit Date Hyperglycemia due to type 2 diabetes kerri litus January 24, 2025 7:11pm Hyperlipemia January 24, 2025 7:11p m Depression March 06, 2025 7: 11pm Hyperglycemia due to type 2 diabetes kerri litus March 06, 2025 7:11pm Additional Source Comments (unrecognized sect ion and content) No Status Records FoundNo Status Records FoundNo Status Records Found INFORMATION SOURCE (unrecogn ized section and content) DATE CREATED AUTHOR 04/04/2020 [facility] DATE CREATED AUTHOR AUTHOR'S ORGANIZ ATION 05/16/2024 [facility] DATE CREATED AUTHOR AUTHOR'S ORGANIZ ATION 02/04/2025 [facility] Source Comments (unrecognize d section and content) In the event this informatio n is protected by the Federal Confidentiality of Alcohol and Drug Abuse Patient Records regulations: The Federal rules restrict any use of the information to criminally investigate or prosecute any alcohol or drug abuse patient.[facility] Reason for Visit (unrecogniz ed section and content) Reason Comments Sore Throat Covid test positive , sore throat, cough Specialty Diagnoses / Procedures Referred By Contac t Referred To Contact Internal Medicine / [facility] Diagnoses sore throat, COVID pos 05/12 Procedures NEW SAME DAY Self [facility] [place] [address] Referral ID Status Reason Start Date Expiration Date Visits Requested Visits Authorized [id number] Authorized Patient Cleared - Qualified 100% FAS 4 08/14/2024 99 99 Care Teams (unrecognized sec tion and content) Team Status: Active Member Role Status Dates Aliyah Sung HOUSE ADMIN, HOUSE ADMIN-C Primary Care Provider Active Start: 2025 Aliyah Sung HOUSE ADMIN, HOUSE ADMIN-C Attending Provider Active Start: 2025 Team Status: Inactive Member Role Status Dates Aliyah Sung HOUSE ADMIN, HOUSE ADMIN-C Primary Care Provider Active Start: 2025 End: 2025 Aliyah Sung HOUSE ADMIN, HOUSE ADMIN-C Attending Provider Active Start: 2025 End: 2025 Aliyah Sung HOUSE ADMIN, HOUSE ADMIN-C Referring Provider Active Start: 2025 End: 2025 Team Status: Active Member Role/Relationship Status Dates Aliyah Sung HOUSE ADMIN, HOUSE ADMIN-C Primary Care Provider Active Start: 2025 Aliyah Sung NP, HOUSE ADMIN-C Attending Provider Active Start: 2025 Team Status: Inactive Member Role/Relationship Status Dates Aliyah Sung HOUSE ADMIN, HOUSE ADMIN-C Primary Care Provider Active Start: 2025 End: 2025 Aliyah Sung NP, HOUSE ADMIN-C Attending Provider Active Start: 2025 End: 2025 Aliyah Sung HOUSE ADMIN, HOUSE ADMIN-C Referring Provider Active Start: 2025 End: 2025 Team Status: Inactive Member Role/Relationship Status Dates Aliyah Sung NP, HOUSE ADMIN-C Attending Provider Active Start: January 24, 2025 End: January 24, 2025 Team Status: Active Member Role/Relationship Status Dates Aliyah Sung NP, HOUSE ADMIN-C Attending Provider Active Start: January 24, 2025 Team Status: Inactive Member Role/Relationship Status Dates Aliyah Sung HOUSE ADMIN, HOUSE ADMIN-C Attending Provider Active Start: January 24, 2025 End: January 24, 2025 Aliyah Sung HOUSE ADMIN, HOUSE ADMIN-C Referring Provider Active Start: January 24, 2025 End: January 24, 2025 Team Status: Inactive Member Role/Relationship Status Dates Aliyah Sung NP, NP-C Attending Provider Active Start: January 24, 2025 End: January 24, 2025 NAIAL Manzo NP Referring Provider Active Start: January 24, 2025 End: January 24, 2025 Team Status: Inactive Member Role/Relationship Status Dates Aliyah Sung NP, NP-Rao Attending Provider Active Start: March 06, 2025 End: March 06, 2025 Goals (unrecognized section and content) Goals may be documented in a n alternate sectionGoals may be documented in an alternate sectionGoals may be documented in an alternate sectionGoals may be documented in an alternate section FOR RECORDS PERTAINING TO PATIENTS WHO ARE OR HAVE BEEN ENROLLED IN A CHEMICAL DEPENDENCY/SUBSTANCEABUSE PROGRAM, SOME INFORMATION MAY BE OMITTED. This clinical summary was aggregated from multiple sources. Caution should be exercised in using it in the provision of clinical care. This summary normalizes information from multiple sources, and as a consequence, information in this document may materially change the coding, format and clinical context of patient data. In addition, data may be omitted in some cases. CLINICAL DECISIONS SHOULD BE BASED ON THE PRIMARY CLINICAL RECORDS. [employer] provides no warranty or guarantee of the accuracy or completeness of information in this document.
[2025-06-30 23:37] LABS: Hematocrit 40.3 % (40-54); Hemoglobin 14.2 g/dL (13.0-16.5); Immature Granulocytes Count 0.010 X10^3/uL (0.0-0.0); Mean Corp Hgb Conc 35.2 g/dL (32-36); Mean Corpuscular Volume 88.0 fL (80-94); Mean Platelet Vol. 11.1 fl (6.2-12.0); NRBC Flagged by Analyzer 0 % (0-5); Platelet Count 279 K/mm3 (150-450); RBC Distribution Width CV 12.4 % (11.6-14.6); RBC Distribution Width SD 39.9 fl (35.1-43.9); Red Blood Count 4.58 M/mm3 (4.6-6.2); White Blood Count 7.3 K/mm3 (4.4-11.0)
[2025-07-01 00:31] LABS: AST(SGOT) 20 U/L (<=37); Alanine Aminotransfer ALT/SGPT 28 U/L (<=46); Albumin, Serum 4.2 g/dL (3.5-5.0); Alkaline Phosphatase 75 U/L (40-129); Anion Gap 13 (5-15); BUN 23 mg/dL (4-19); BUN/Creat Ratio 33.7 RATIO (10-20); Calcium,Total 9.6 mg/dL (7.6-11.0); Carbon Dioxide 21.3 mmol/L (21.0-32.0); Chloride 104 mmol/L (98-108); Cholesterol 149 mg/dL (<=200); Globulin 2.8 g/dL (2.2-4.2); Glucose 81 mg/dL (70-99); Low Density Lipoprotein Calc. 92 mg/dL; Potassium 3.7 mmol/L (3.3-5.1); Triglycerides 107 mg/dL; Very Low Density Lipoprotein 21 mg/dL (5-40); cholesterol:hdl ratio screen 4.01
[2025-07-03 14:08] LABS: Anti-Chromatin <0.2 AI (0.0-0.9); Anti-Jo <0.2 AI (0.0-0.9); Anti-dsDNA Ab <1 IU/mL (0-9); SJOGREN'S Anti-SS-A test < 0.2 AI (0.0-0.9); SJOGREN'S Anti-SS-B test < 0.2 AI (0.0-0.9)
== END | disposition home or self-care (01) ==
PROVIDERS: Referring Provider Nurse Practitioner; Visit Provider Nurse Practitioner
DX: I73.00 Raynaud's syndrome without gangrene (principal); E11.65 Type 2 diabetes mellitus with hyperglycemia; M79.641 Pain in right hand; M79.642 Pain in left hand
CPT/HCPCS: 80053; 80061; 84443; 85025; 86225; 86235; 86431